=== PATIENT | female | born 1955 | race Caucasian/White ===

== ENCOUNTER 2017-02-25 10:45 | Day surgery (SDC) | payer OTHER ==
[2017-02-25] VITALS (9 sets, daily range): BP systolic 96–131; BP diastolic 59–97; PULSE 58–75; RESP 16–23; O2SAT 99–100
[~2017-02-25] VITALS: Ht 167.6 cm; Wt 57.1 kg
--- NOTE | 2017-02-25 07:10 | PCM.HPANE ---
Patient Data Surgeon Admitting Provider: Attending Provider:Deven Arzate MD Primary Care Physician:Kavya Young Other Provider:Frederick Luevano Anesthesia Reason for Visit Left Inguinal Region Mass Ht/WT & BMI Height (Feet): 5 Height (Inches): 6 Weight (Kilograms): 57.61 Body Mass Index 20.00 Allergies Coded Allergies: latex (Verified Allergy, Unknown, rash, 02/25/17) Past Anesthesia History Anesthesia History: Denies:: Anesthesia Reactions Diabetes History Hx Diabetes?: No Medications Hypertension Medication: No Home Meds Incl Beta Sundeep: No Reported Medications Calcium Carbonate (Tums Ultra Strength)1,177 Mg Tab.chew1,177 Mg PO 02/25/17 Cholecalciferol (Vitamin D3) (Vitamin D)1,000 Unit Capsule1,000 Unit PO DAILY # 1 BOTTLE Ref 0 02/25/17 Multivitamin (Once Daily)1 Each Tablet1 Each PO DAILY 02/25/17 Estradiol (Vagifem)10 Mcg Lyctzp36 Mcg VG Q3D 02/25/17 History History of ENT Problems?: No Hx of Heart Problems?: No Hx of Respiratory Problem?: No Respiratory History: Denies:: Oxygen Administration Use of C-PAP Machine Hx Neurologic Problems?: No Hx of GI Problems?: Yes Other GI Pertinent History: left femoral hernia current admission problem Hx of Problems?: Yes Female Hx: Denies:: Currently (tubal) Problems with Breasts? Skin History: Denies:: History Skin Disorders? Pressure Ulcers Hx Musculoskeletal Problems?: No Hx of Psycho/Social Problems?: No Hx Surgeries?: Yes (tubal, bladder sling) Hx Any Other Health Problems?: Yes Other History: Denies:: Cancer Thyroid Disease Hx Diabetes: No Hx Alcohol Use: YesAlcoholic Drinks Per Day: one drink dailyHx Substance Use: NoHave You Smoked inLast 12 mo: No Stop/Bang P-Blood Pressure: treated: No B- Body Mass Index > 35 kg/m2: No A- Age over 50: Yes N- Neck Large Circumference: No G- Gender Male: No HANNAH Risk Assessment: Low Risk, <3 Yes Risk Assessment Category Category 1A: Patient has history of documented sleep apnea, and HAS NOT received any narcotic, sedative or anesthesia administration during this stay. Category 1B: Patient has history of documented sleep apnea, and HAS received any narcotic , sedative or anesthesia administration during this stay Category 2: Patient has SUSPECTED Obstructive Sleep Apnea, and HAS received any narcotic , sedative or anesthesia administration during this stay. Category 3: Patient has SUSPECTED Obstructive Sleep Apnea and HAS NOT received narcotic, sedative or anesthesia administration during this stay. Category 4: Outpatient in Procedural Areas with known sleep apnea or who screen positive for High Risk via the STOP/BANG questionnaire. Exam Exam General Appearance: Alert, Oriented X3, Cooperative, No Acute Distress HEENT/AIRWAY: MP 2 Lungs: Clear to Auscultation, Normal Air Movement Heart: Exam Unremarkable, Regular Rate/Rhythm, No Murmurs/Rubs/Gallops Plan Impression Patient chart reviewed, patient interviewed and anesthestic plan with risks, benefits, and alternatives discussed, and informed consent obtained. ASA Physical Status: ASA1 Normal Healthy Anesthetic Plan: GA, MAC Bene/Risks/Altern/Consents: Yes HP Complete Prior to Induction: Yes Tristin Queen MD Feb 25, 2017 07:10
[~2017-02-25 10:45] MED LIST: CeFAZolin 2 Gm/50 mL D5W IV Premix IV ONE
[2017-02-25] MEDS ORDERED: Remifentanil 1 mg/3 mL Inj ONE (10:46)
[2017-02-25] MEDS ORDERED: Propofol 10,000 mCg/mL 20 mL Inj ONE (10:46)
[2017-02-25] MEDS ORDERED: CeFAZolin Inj 2 gm / 50mL D5W IV ONE (11:36)
[2017-02-25] MEDS: Lactated Ringer's 1,000 ML IV SCH ×2 (11:51→14:02)
[2017-02-25] MEDS ORDERED: CALC117719 PO (11:54)
[2017-02-25] MEDS ORDERED: ESTR10TA VG (11:54)
[2017-02-25] MEDS ORDERED: MULT-666 PO (11:54)
[2017-02-25] MEDS ORDERED: CHOL100045 PO (11:54)
[2017-02-25] MEDS ORDERED: Bupivacaine-MPF 0.5% 30 mL Inj INFILTRATE ONE (14:01)
[2017-02-25] MEDS ORDERED: Lidocaine PF 1% 30 mL Inj INFILTRATE ONE (14:08)
[2017-02-25] MEDS ORDERED: Lactated Ringer's 1,000 ML IV SCH (14:16)
[2017-02-25] MEDS ORDERED: Lactated Ringer's 500 ML IV PRN (14:16)
[2017-02-25] MEDS ORDERED: fentaNYL-PF 50 mCg/mL 2 mL Inj IVPUSH PRN (14:20)
[2017-02-25] MEDS ORDERED: HYDROmorphone 1 mg/mL Inj IVPUSH PRN (14:20)
[2017-02-25] MEDS ORDERED: Dexamethasone 4 mg/mL Inj IVPUSH PRN (14:20)
[2017-02-25] MEDS ORDERED: MetoCLOpramide 5 mg/mL 2 mL Inj IVPUSH PRN (14:20)
[2017-02-25] MEDS ORDERED: Ondansetron 2 mg/mL 2 mL Inj IVPUSH PRN (14:20)
[2017-02-25] MEDS ORDERED: Phenylephrine 10,000 mCg/mL Inj IVPUSH PRN (14:20)
[2017-02-25] MEDS ORDERED: EPHEDrine Sulfate 50 mg/mL Inj IVPUSH PRN (14:20)
[2017-02-25] MEDS ORDERED: HYDROcodone-APAP 5-325 mg Tablet PO PRN (14:50)
--- NOTE | 2017-02-25 23:53 | OP ---
[address] [address] OPERATIVE REPORT PATIENT: CRISTIANE LAMBERT : 1955 MR#: [id number] ADMIT: 02/25/2017 JOB ID: [id number] DATE OF SURGERY: 02/25/2017 PREOPERATIVE DIAGNOSIS(ES): Left groin mass. POSTOPERATIVE DIAGNOSIS(ES): Left femoral lymphadenopathy. OPERATION: Left femoral lymph node biopsy. SURGEON: Deven Arzate MD. INSTRUCTOR PSYCHIATRIC AIDE: Dario Murguia PA-C. INDICATIONS: The patient is a 61-year-old female who has a left groin mass. She 1st noticed it in October. She believes it has increased in size and causes intermittent discomfort. She had a left anterior knee injury in July that took several months to heal. On physical examination, she had a palpable mass high in her left groin just in the exact location where an incarcerated femoral hernia would be. After discussing options with the patient, it was elected to proceed with exploration and repair of incarcerated femoral hernia or excision of a lymph node, whatever was found. She agreed to proceed. FINDINGS: The mass was an enlarged lymph node. It was firm. Portions of it were sent for flow cytometry and the rest for conventional pathology. There was no evidence of a femoral hernia. DESCRIPTION OF PROCEDURE: At the beginning and end of the operation, the SCOAP checklist was completed. She received deep sedation administered by Dr. Tristin Queen. Using ChloraPrep, her left groin was prepped and draped in the usual fashion. An incision was made over the mass, and she received 1% lidocaine. The incision followed skin lines and was located above the inguinal crease and ran obliquely. Using cautery dissection, it was carried down to the mass and once it was then apparent that it was a lymph node, I used a LigaSure device to divide the tissues and lymphatic channels attached to and going into the node. After removing it, it was submitted to Pathology as discussed above. Hemostasis was ensured with cautery. The wound was closed with layers of running subcutaneous 3-0 Vicryl, interrupted deep dermal 3-0 Vicryl and running subcuticular 4-0 Vicryl and Dermabond. The estimated blood loss was less than 5 cc. There were no apparent complications. The final sponge, needle and instrument counts were announced as correct, and she was returned to recovery room in stable condition. Critical assistance was provided by Dario Murguia PA-C.
--- NOTE | 2017-02-26 18:55 | PCM.ANEP1 ---
Post Anesthesia Phase 1 PACU Phase 1 Assessment Anesthetic Administered: GA Level of Alertness: Awake, talking MADRIGAL's with Equal Strength: Yes Pain: No Nausea or Vomiting: No Oxygen Delivery: Nasal Cannula Lungs: Clear to Auscultation Dermatome Level: Full Sensation Tristin Queen MD Feb 26, 2017 18:55
--- NOTE | 2017-02-26 18:56 | PCM.ANEP2 ---
Post Anesthesia Evaluation ASA/CMS Post Anesthesia VS in Patient's Normal Range?: Yes Resp Stable; Airway Patent?: Yes CV Function & Hydration Stable: Yes Mental Status Recovered?: Yes Pain control Satisfactory?: Yes N/V Control Satisfactory?: Yes Tristin Queen MD Feb 26, 2017 18:56
--- NOTE | 2017-02-27 15:41 | PATH ---
SURGICAL PATHOLOGY Attending Physician:Linda Dash CASE STATUS: Signed Out PATIENT NAME: CRISTIANE LAMBERT PID: [id number] : 1955 DATE COLLECTED:02/25/2017 00:00 SPECIMEN: Lymph Node, Biopsy CLINICAL HISTORY: 1). LEFT FEMORAL LYMPH NODE FINAL DIAGNOSIS: 1.LEFT FEMORAL LYMPH NODE: METASTATIC SQUAMOUS CELL CARCINOMA, MODERATELY TO POORLY DIFFERENTIATED. ICD10 code C77.4 NOTE: As part of a routine quality assurance supervisor final, Dr. Lino Alaniz has also reviewed this case and agrees with the diagnosis. The finding of metastatic squamous cell carcinoma was reported to Torrie in Dr. Arzate' s office on 02/27/[address] Whitmore. GROSS DESCRIPTION: The specimen is received in formalin, labeled with the patient's name, sublabeled as left femoral lymph node and consists of a lymph node (2.5 x 1.7 x 1.6 cm). Section code: (A-D) one lymph node, saline sections. Specimen entirely submitted. 02/26/17 JM MICRO DESCRIPTION: Sections are of lymph node that is almost entirely replaced by a malignant neoplasm characterized by large nests of basaloid cells with central keratin formation in some. There is moderate to marked nuclear pleomorphism, and mitotic rate is brisk. ICD-9 CODES: CPT CODES: 1: 74416, 96789 PROCEDURE/ADDENDA: Addendum SPI Addendum Diagnosis Flow Interpretation: Left femoral lymph node biopsy: No abnormal lymphocyte population; see Comment. Flow Comment: Flow cytometry performed on cells obtained from the left femoral lymph node biopsy shows 56% lymphocytes and 44% granulocytes. Lymphocytes consist of 78% mature T cells with a CD4/CD8 ratio of 6.2 and 18% B cells. No monoclonal B cells are identified. No aberrant antigen expression is identified on T or B cells. In summary, the flow cytometric analysis does not demonstrate an abnormal lymphocyte population. Morphologic review of the cytospin preparation from the fresh tissue used for flow cytometry shows malignant cells of large size. Further characterization of this large cell malignancy will require correlation with the lymph node biopsy histology and immunohistochemistry, if indicated. Resulting Pathologist: Mark Vásquez MD, PhD - [facility]. Addendum Comment Please see [facility] Flow Cytometry Report [id number] for complete details. Electronically Signed Out Trish Whitmore MD Addendum SPI Addendum Diagnosis Sections, along with appropriate control are incubated with antibodies to P16. The tumor cells are strongly positive. Addendum Comment {Not Entered} Electronically Signed Out Lino Alaniz MD Electronically Signed Out Trish Whitmore MD [facility] [address], [place] [address] Technical component performed at [facility], [address], [place], [address]
[2017-03-07] MEDS ORDERED: LORA0.5T PO (16:47)
[2017-04-23] MEDS ORDERED: ONDA-54 PO (09:41)
[2017-04-23] MEDS ORDERED: PROC-4 PO (09:41)
== END 2017-02-25 23:59 | disposition home or self-care (01) ==
LOC: SAS 10:45
PROVIDERS: ATTEND Surgery
DX: C77.4 Secondary and unspecified malignant neoplasm of inguinal and lower limb lymph nodes (principal); Z87.891 Personal history of nicotine dependence

== ENCOUNTER 2017-03-03 08:50 | Day surgery (SDC) | payer OTHER ==
[2017-03-03] VITALS (8 sets, daily range): BP systolic 103–132; BP diastolic 6–79; PULSE 60–70; RESP 14–17; O2SAT 100
[~2017-03-03] VITALS: Ht 167.6 cm; Wt 56.9 kg
--- NOTE | 2017-03-03 08:16 | HP ---
[address] [address] HISTORY AND PHYSICAL PATIENT: CRISTIANE LAMBERT : 1955 MR#: [id number] ADMIT: 03/03/2017 JOB ID: [id number] HISTORY: The patient is a 61-year-old female, who on February 25, 2017, had a left inguinal exploration. It was for a left inguinal mass with the differential being an incarcerated femoral hernia versus a lymph node. It turned out to be a lymph node, and the final pathology report showed metastatic squamous cell carcinoma. She has no known primary. After discussing options with the patient, it was elected to proceed with an evaluation under anesthesia with the patient in lithotomy including a vaginal examination as well as anoscopy. PAST MEDICAL HISTORY: She has no major medical illnesses. She is a lifelong nonsmoker. She has no medications. PHYSICAL EXAMINATION: Alert. No distress. BMI is 21. HEENT: No scleral icterus. Neck: No masses. Lungs: Clear. Cardiac exam: Regular rhythm. No murmurs or gallops appreciated. Oblique left femoral incision. IMPRESSION: Metastatic squamous cell carcinoma, etiology unknown. PLAN: Will proceed with an evaluation under anesthesia with anoscopy, pelvic exam and biopsy of any suspicious lesions. The patient has made a decision to operate.
[~2017-03-03 08:50] MED LIST changes: +CALC117719 PO; +CHOL100045 PO; -CeFAZolin 2 Gm/50 mL D5W IV Premix IV ONE; +ESTR10TA VG; +MULT-666 PO
[2017-03-03] MEDS ORDERED: Propofol 10,000 mCg/mL 20 mL Inj ONE (08:51)
[2017-03-03] MEDS ORDERED: fentaNYL-PF 50 mCg/mL 2 mL Inj ONE (08:51)
[2017-03-03] MEDS ORDERED: Ondansetron 2 mg/mL 2 mL Inj ONE (08:51)
[2017-03-03] MEDS ORDERED: Lactated Ringer's 1,000 ML IV ONE (09:07)
--- NOTE | 2017-03-03 10:10 | PCM.HPANE ---
Patient Data Surgeon Admitting Provider: Attending Provider:Deven Arzate MD Primary Care Physician:Kavya Yuong Other Provider:Frederick Luevano Anesthesia Reason for Visit Evaluation Under Anesthesia Ht/WT & BMI Height (Feet): 5 Height (Inches): 6 Weight (Kilograms): 56.9 Body Mass Index 20.00 Allergies Coded Allergies: latex (Verified Allergy, Unknown, rash, 02/25/17) Past Anesthesia History Anesthesia History: Denies:: Anesthesia Reactions Diabetes History Hx Diabetes?: No Medications Home Meds Incl Beta Sundeep: No Reported Medications Calcium Carbonate (Tums Ultra Strength)1,177 Mg Tab.chew1,177 Mg PO 02/25/17 Cholecalciferol (Vitamin D3) (Vitamin D)1,000 Unit Capsule1,000 Unit PO DAILY # 1 BOTTLE Ref 0 02/25/17 Multivitamin (Once Daily)1 Each Tablet1 Each PO DAILY 02/25/17 Estradiol (Vagifem)10 Mcg Egpnak39 Mcg VG Q3D 02/25/17 History History of ENT Problems?: No Hx of Heart Problems?: No Hx of Respiratory Problem?: No Respiratory History: Denies:: Oxygen Administration Use of C-PAP Machine Hx Neurologic Problems?: No Hx of GI Problems?: Yes Hx of Problems?: Yes Female Hx: Denies:: Currently (POST MENOPAUSAL) Problems with Breasts? Skin History: Denies:: History Skin Disorders? Pressure Ulcers Hx Musculoskeletal Problems?: No Hx of Psycho/Social Problems?: No Hx Surgeries?: Yes (tubal, bladder sling) Hx Any Other Health Problems?: Yes Other History: Denies:: Cancer Thyroid Disease Hx Diabetes: No Hx Alcohol Use: YesHx Substance Use: NoHave You Smoked inLast 12 mo: No Stop/Bang Risk Assessment Category Category 1A: Patient has history of documented sleep apnea, and HAS NOT received any narcotic, sedative or anesthesia administration during this stay. Category 1B: Patient has history of documented sleep apnea, and HAS received any narcotic , sedative or anesthesia administration during this stay Category 2: Patient has SUSPECTED Obstructive Sleep Apnea, and HAS received any narcotic , sedative or anesthesia administration during this stay. Category 3: Patient has SUSPECTED Obstructive Sleep Apnea and HAS NOT received narcotic, sedative or anesthesia administration during this stay. Category 4: Outpatient in Procedural Areas with known sleep apnea or who screen positive for High Risk via the STOP/BANG questionnaire. Exam Exam Vital Signs Vital Signs Date Time Temp Pulse Resp B/P Pulse Ox O2 Delivery O2 Flow Rate FiO2 03/03/17 09:08 36.3 70 14 132/79 100 Room Air General Appearance: Alert HEENT/AIRWAY: MP 1 Lungs: Clear to Auscultation Heart: Exam Unremarkable Meds/Labs/Diagnostics Admission Meds Current Medications Lactated Ringer's (Lr) 1,000 ml @ ud STK-MED ONCE IV Last administered on 03/03t 09:07; Start 03/03/17 at 09:07; Stop 03/03/17 at 09:08; Status DC Plan Impression Patient chart reviewed, patient interviewed and anesthestic plan with risks, benefits, and alternatives discussed, and informed consent obtained. NPO Status: 03/02@2230, APPLE JUICE @0530 ASA Physical Status: ASA2 Mod Systemic Disease Anesthetic Support Modalities: Hemodynamic Monitoring Anesthetic Plan: GA Bene/Risks/Altern/Consents: Yes HP Complete Prior to Induction: Yes Rigo Quiros MD Mar 03, 2017 10:10
[2017-03-03] MEDS ORDERED: Lactated Ringer's 500 ML IV PRN (11:14)
[2017-03-03] MEDS ORDERED: Lactated Ringer's 1,000 ML IV SCH (11:14)
[2017-03-03] MEDS ORDERED: EPHEDrine Sulfate 50 mg/mL Inj IVPUSH PRN (11:15)
[2017-03-03] MEDS ORDERED: HYDROmorphone 1 mg/mL Inj IVPUSH PRN (11:15)
[2017-03-03] MEDS ORDERED: Dexamethasone 4 mg/mL Inj IVPUSH PRN (11:15)
[2017-03-03] MEDS ORDERED: Ondansetron 2 mg/mL 2 mL Inj IVPUSH PRN (11:15)
[2017-03-03] MEDS ORDERED: MetoCLOpramide 5 mg/mL 2 mL Inj IVPUSH PRN (11:15)
[2017-03-03] MEDS ORDERED: fentaNYL-PF 50 mCg/mL 2 mL Inj IVPUSH PRN (11:15)
[2017-03-03] MEDS ORDERED: Phenylephrine 10,000 mCg/mL Inj IVPUSH PRN (11:15)
--- NOTE | 2017-03-03 11:36 | PCM.ANEP1 ---
Post Anesthesia Phase 1 PACU Phase 1 Assessment Date of Service: Mar 03, 2017 Vital Signs Vital Signs Date Time Temp Pulse Resp B/P Pulse Ox O2 Delivery O2 Flow Rate FiO2 03/03/17 09:08 36.3 70 14 132/79 100 Room Air Anesthetic Administered: GA Level of Alertness: Awake, talking MADRIGAL's with Equal Strength: Yes Pain: No Nausea or Vomiting: No Oxygen Delivery: Simple Mask Lungs: Clear to Auscultation Dermatome Level: Full Sensation Early,Rigo Evans MD Mar 03, 2017 11:35
--- NOTE | 2017-03-03 11:37 | PCM.ANEP2 ---
Post Anesthesia Evaluation ASA/CMS Post Anesthesia Date of Service: Mar 03, 2017 VS in Patient's Normal Range?: Yes Resp Stable; Airway Patent?: Yes CV Function & Hydration Stable: Yes Mental Status Recovered?: Yes Pain control Satisfactory?: Yes N/V Control Satisfactory?: Yes Early,Rigo Evans MD Mar 03, 2017 11:37
[2017-03-03] MEDS ORDERED: HYDROcodone-APAP 5-325 mg Tablet PO PRN (12:05)
--- NOTE | 2017-03-04 00:11 | OP ---
[address] [address] OPERATIVE REPORT PATIENT: CRISTIANE LAMBERT : 1955 MR#: [id number] ADMIT: 03/03/2017 JOB ID: [id number] DATE OF SURGERY: 03/03/2017 PREOPERATIVE DIAGNOSIS(ES): Metastatic squamous cell carcinoma left femoral lymph node. POSTOPERATIVE DIAGNOSIS(ES): Metastatic squamous cell carcinoma left femoral lymph node. PROCEDURE: 1. Evaluation under anesthesia. 2. Pelvic exam with Pap smear and cervical biopsy. 3. Anoscopy with anal biopsy. SURGEON: Deven Arzate MD. MUSIC THEORY PROFESSOR: None. INDICATIONS: A 61-year-old female who last week underwent a biopsy of a left femoral node which demonstrated squamous cell carcinoma. After discussing options with the patient, it was elected to proceed with an evaluation under anesthesia, Pap smear, pelvic exam and anoscopy. FINDINGS: Her vaginal vault appeared normal to me. The mucosal lining was smooth. There were no obvious lesions. There are no perivaginal legion lesions. The cervix appeared normal. It was a little thickened in direct anterior midline and I biopsied that area, in addition to doing a Pap smear. Perianal skin was normal. There is no cutaneous lesions. Anoscopy was normal, but when I inserted the scope there was some tearing of the posterior midline and so there is some mucosa that I removed, but grossly it was normal. In summary, I did not find any obvious primary source for her metastatic squamous cell carcinoma by this exam. Loupe magnification was used. DESCRIPTION OF PROCEDURE: At the beginning and end of the operation, the SCOAP checklist was completed. An LMA anesthetic was induced. She was placed in lithotomy position. I did a pelvic exam first. The bivalve speculum was inserted. I carefully inspected the vaginal mucosa and the cervix with the results as stated above. I did a Pap test with both the spatula and then with a brush and put them in the prep solution. There was some thickening of the cervix anteriorly and so I did a small biopsy of that, which was submitted to Pathology. Again with loupe magnification I carefully inspected the perivaginal and perianal skin. I saw no lesions to biopsy. Anoscopy was performed as stated above and grossly looked normal, but there was some scope trauma and so posteriorly I removed some of that, elevated the anoderm and submitted that to pathology, but grossly it was normal. The patient tolerated the procedure well. There were no obvious complications. There is essentially no bleeding. The final sponge, needle and instrument counts were announced as correct, and she was returned to recovery room in stable condition.
--- NOTE | 2017-03-06 14:40 | PATH ---
SURGICAL PATHOLOGY Attending Physician:Linda Dash CASE STATUS: Signed Out PATIENT NAME: JSESIE LAMBERT PID: [id number] : 1955 DATE COLLECTED:03/03/2017 20:45 SPECIMEN: 1: Cervix, Biopsy 2: Anus, Biopsy CLINICAL HISTORY: METASTATIC SQUAMOUS CELL CARCINOMA 1). CERVIX BIOPSY 2). POSTERIOR ANUS 3). forwarded to cytology. FINAL DIAGNOSIS: 1. Cervix, Biopsy: Squamous mucosa with mild cytologic atypia, suggestive of, but not diagnostic of low-grade squamous intraepithelial lesion (LSIL/cervical intraepithelial lesion I/SUZY-I/mild dysplasia). No high grade dysplasia or invasive tumor identified. 2. Posterior anus, Biopsy: Avulsed portions of high-grade squamous intraepithelial lesion (HSIL/anal intraepithelial lesion III/AIN-III/severe dysplasia) and avulsed portions of low-grade squamous intraepithelial lesion (LSIL/anal intraepithelial lesion I/AIN-I/mild dysplasia). No invasive tumor identified. ICD10 D01.3 GROSS DESCRIPTION: The specimen is received in two formalin filled containers labeled with the patient's name. 1). The specimen is sublabeled "cervix" and consists of a 0.3 x 0.2 x 0.2 CM portion of tissue which is entirely submitted in cassette 1A. 2). The specimen is sublabeled "posterior anus" and consists of 4 light chavira portions of tissue which aggregate to 0.3 x 0.3 x 0.2 CM. The specimen is entirely submitted in cassettes 2A. 03/05/2017 [facility] ICD-9 CODES: CPT CODES: 1: 82062 2: 54470 Electronically Signed Out Jessie Kaur MD [facility] Pathology [facility] [address], [place] [address] Technical component performed at [facility], [address] [place] [address] Ave[address], [place], [address]
[2017-03-07] MEDS ORDERED: LORA0.5T PO (16:47)
[2017-04-23] MEDS ORDERED: ONDA-54 PO (09:41)
[2017-04-23] MEDS ORDERED: PROC-4 PO (09:41)
== END 2017-03-03 23:59 | disposition home or self-care (01) ==
LOC: SAS 08:50
PROVIDERS: ATTEND Surgery
DX: D01.3 Carcinoma in situ of anus and anal canal (principal); N87.0 Mild cervical dysplasia; C77.4 Secondary and unspecified malignant neoplasm of inguinal and lower limb lymph nodes; N95.9 Unspecified menopausal and perimenopausal disorder
CPT/HCPCS: 46606; 57500; J2405; J3010; J7120

== ENCOUNTER 2017-03-18 11:45 | Day surgery (SDC) | payer OTHER ==
[2017-03-18] VITALS (8 sets, daily range): BP systolic 94–122; BP diastolic 48–78; PULSE 66–81; RESP 14–18; O2SAT 99–100
[~2017-03-18] VITALS: Ht 167.6 cm; Wt 55.7 kg
[~2017-03-18 11:45] MED LIST changes: -ESTR10TA VG; +LORA0.5T PO
[2017-03-18] MEDS ORDERED: Propofol 10,000 mCg/mL 20 mL Inj ONE (11:46)
[2017-03-18] MEDS ORDERED: fentaNYL-PF 50 mCg/mL 2 mL Inj ONE (11:46)
[2017-03-18] MEDS ORDERED: Ondansetron 2 mg/mL 2 mL Inj ONE (11:46)
[2017-03-18] MEDS: Lactated Ringer's 1,000 ML IV SCH ×2 (11:49→15:20)
[2017-03-18] MEDS ORDERED: IBUP200C PO (12:26)
--- NOTE | 2017-03-18 14:39 | PCM.HPANE ---
Patient Data Surgeon Admitting Provider: Attending Provider:Deven Arzate MD Primary Care Physician:Kavya Young Other Provider:Frederick Luevano Anesthesia Reason for Visit Metastatic Squamous Cell Cancer Ht/WT & BMI Height (Feet): 5 Height (Inches): 6.00 Weight (Kilograms): 55.740 Body Mass Index 19.00 Allergies Coded Allergies: latex (Verified Allergy, Unknown, rash, 02/25/17) Past Anesthesia History Anesthesia History: Denies:: Anesthesia Reactions (diarrhea for 1 week after last anes, sore throat ), Fam Anesthesia Reaction Diabetes History Hx Diabetes?: No Current Bedside Blood Glucose: 89 MRSA MRSA: No Medications Hypertension Medication: No Home Meds Incl Beta Sundeep: No Reported Medications Ibuprofen 200 Mg [id number] Mg PO QID PRN For Pain Ref 0 03/18/17 Lorazepam 0.5 Mg Tablet0.5 Mg PO TID PRN For Anxiety #5 TABLET Ref 0 for PET-CT 03/07/17 Calcium Carbonate (Tums Ultra Strength)1,177 Mg Tab.chew1,000 Mg PO DAILY 02/25/17 Cholecalciferol (Vitamin D3) (Vitamin D)1,000 Unit Capsule1,000 Unit PO DAILY # 1 BOTTLE Ref 0 02/25/17 Multivitamin (Once Daily)1 Each Tablet1 Each PO DAILY 02/25/17 Discontinued Reported Medications Estradiol (Vagifem)10 Mcg Awprzb75 Mcg VG Q3D 02/25/17 History History of ENT Problems?: No HEENT History: Denies:: Abnormal Airway Cataracts Difficult Intubation Dysphagia Glaucoma Hearing Problem Sinus Problem TMJ Denture Type: None Teeth Condition: Within Normal Limits Hx of Heart Problems?: No Cardiovascular History: Denies:: AICD Edema Heart Murmur Hypertension Irregular Heartbeat Pacemaker Hx of Respiratory Problem?: Yes Respiratory History: Positive for:: Cough (current) Denies:: Asthma COPD Emphysema Oxygen Administration Pneumonia Pulmonary Embolism Tuberculosis Use of C-PAP Machine Use of Inhalers / NEBS Other Resp Pertinent History: lung nodule noted on CT scan Hx Neurologic Problems?: No Neurological History: Denies:: Alzheimer's Disease CVA Multiple Sclerosis Parkinson's Disease Seizures Hx of GI Problems?: Yes Other GI Pertinent History: metastatic squamous cell ca- suspicious of anal primary current admission problem Hx of Problems?: Yes Female Hx: Denies:: Currently (POST MENOPAUSAL) Problems with Breasts? Skin History: Denies:: History Skin Disorders? Pressure Ulcers Hx Musculoskeletal Problems?: No Musculoskeletal History: Denies:: Degenerative Joint Fibromyalgia Musculoskeletal Trauma Osteoarthritis Hx of Psycho/Social Problems?: No Hx Surgeries?: Yes (cyst removed from left hand,endometriosis, tubal ligation) Hx Any Other Health Problems?: Yes Other History: Positive for:: Cancer (metastatic squamous cell unknown primary ) Denies:: Thyroid Disease History Blood Transfusions: Positive for:: Accept Blood Products? Denies:: Blood Transfusions Hx Diabetes: NoBedside Blood Glucose: 89 Hx Alcohol Use: Yes (1-2 drinks a week)Hx Substance Use: No Smoking Status: Former Smoker Have You Smoked inLast 12 mo: No (remote hx of in college ) Stop/Bang Treated for Sleep Apnea?: No Do You Have a CPAP Machine?: No S-Snoring: Do You Snore Loudly: No T-Tired: feel tired, fatigued: No O-Obsered: Observed not breath: No P-Blood Pressure: treated: No B- Body Mass Index > 35 kg/m2: No A- Age over 50: Yes N- Neck Large Circumference: No G- Gender Male: No HANNAH Total Score: 1 Risk Assessment Category Category 1A: Patient has history of documented sleep apnea, and HAS NOT received any narcotic, sedative or anesthesia administration during this stay. Category 1B: Patient has history of documented sleep apnea, and HAS received any narcotic , sedative or anesthesia administration during this stay Category 2: Patient has SUSPECTED Obstructive Sleep Apnea, and HAS received any narcotic , sedative or anesthesia administration during this stay. Category 3: Patient has SUSPECTED Obstructive Sleep Apnea and HAS NOT received narcotic, sedative or anesthesia administration during this stay. Category 4: Outpatient in Procedural Areas with known sleep apnea or who screen positive for High Risk via the STOP/BANG questionnaire. Exam Exam Vital Signs Vital Signs Date Time Temp Pulse Resp B/P Pulse Ox O2 Delivery O2 Flow Rate FiO2 03/18/17 12:13 36.7 67 18 121/78 99 Room Air General Appearance: Alert, Oriented X3, Cooperative HEENT/AIRWAY: MP 2 Lungs: Clear to Auscultation, Normal Air Movement Heart: Exam Unremarkable, Regular Rate/Rhythm Meds/Labs/Diagnostics Admission Meds Current Medications Lactated Ringer's (Lr) 1,000 ml @ 120 mls/hr Q8H20M IV Last administered on t 11:49; Start 03/18/17 at 05:00; Stop 03/18/17 at 13:19; Status DC Bedside Blood Glucose: 89 Plan Impression Patient chart reviewed, patient interviewed and anesthestic plan with risks, benefits, and alternatives discussed, and informed consent obtained. ASA Physical Status: ASA2 Mod Systemic Disease Anesthetic Plan: GA Bene/Risks/Altern/Consents: Yes HP Complete Prior to Induction: Yes Varghese Villegas MD March 18, 2017 14:39
[2017-03-18] MEDS ORDERED: Bupivacaine-MPF 0.25%/EPI 30 mL Inj INFILTRATE ONE (16:01)
[2017-03-18] MEDS ORDERED: Lactated Ringer's 1,000 ML IV ONE (16:02)
[2017-03-18] MEDS ORDERED: HYDROcodone-APAP 5-325 mg Tablet PO PRN (16:10)
[2017-03-18] MEDS ORDERED: Lactated Ringer's 500 ML IV PRN (16:16)
[2017-03-18] MEDS ORDERED: Lactated Ringer's 1,000 ML IV SCH (16:16)
[2017-03-18] MEDS ORDERED: Dexamethasone 4 mg/mL Inj IVPUSH PRN (16:20)
[2017-03-18] MEDS ORDERED: HYDROmorphone 1 mg/mL Inj IVPUSH PRN (16:20)
[2017-03-18] MEDS ORDERED: Phenylephrine 10,000 mCg/mL Inj IVPUSH PRN (16:20)
[2017-03-18] MEDS ORDERED: fentaNYL-PF 50 mCg/mL 2 mL Inj IVPUSH PRN (16:20)
[2017-03-18] MEDS ORDERED: Ondansetron 2 mg/mL 2 mL Inj IVPUSH PRN (16:20)
[2017-03-18] MEDS ORDERED: EPHEDrine Sulfate 50 mg/mL Inj IVPUSH PRN (16:20)
[2017-03-18] MEDS ORDERED: MetoCLOpramide 5 mg/mL 2 mL Inj IVPUSH PRN (16:20)
--- NOTE | 2017-03-18 16:53 | OP ---
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 PROCEDURE PERFORMED: 1. Exam under anesthesia. 2. Colposcopy. SURGEON: Dania Bhatt MD. ANESTHESIA: LMA. ESTIMATED BLOOD LOSS: Negligible. FINDINGS: Stenotic cervical os. Low-grade dysplastic changes. COMPLICATIONS: None apparent. INDICATIONS: This is a 61-year-old female, a patient of Dr. Deven Arzate who presented to his clinic for a femoral mass. She was brought to the operating room previously and enlarged lymph node was identified which was biopsied and returned with metastatic squamous cell carcinoma with HPV positivity. She also had an exam with Dr. Arzate with a random cervical biopsy and random anal biopsy. The cervical biopsy showed low-grade squamous intraepithelial lesion and the anal biopsy showed high-grade dysplasia. She was brought back to the operating room for a more thorough exam under anesthesia with anoscopy, and I was consulted for colposcopic portion of the procedure. PROCEDURE: Please see Dr. Arzate's dictation regarding the anoscopy portion of the case. When he had completed his portion, bivalve speculum was placed in the vagina. The cervix was visualized, and there was granulation tissue and postsurgical changes noted from his random biopsy that had previously been completed at 12 o'clock. After application of acetic acid, she had an area of aceto-white change at 11-12 o'clock. Following this, Lugol's solution was applied and the cervix was visualized with the colposcope. Her cervix was noted to be nonstaining Lugol's from 5-9 o'clock with some punctate mosaicism present. Random biopsies were taken at 12 o'clock at the area of previous biopsy by Dr. Arzate, 11:00, 7:00 and 6 o'clock. She was noted to have a stenotic cervical os and an endocervical curettage was then completed as well. Due to her stenotic cervix, I was not able to entirely visualize the transformation zone, but the overall impression was low-grade changes. On bimanual exam, she was noted to have some nodularity of her cervix at 5-6 o'clock. Her uterosacral ligaments were otherwise free of disease and there were no other abnormalities noted. Her uterus was small, mobile and nontender. At this point in time, the procedure was completed. ZOILA
--- NOTE | 2017-03-18 17:45 | OP ---
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 PROCEDURE: Anoscopy with random anal biopsies. SURGEON: Deven Arzate MD. SYSTEM INTEGRATION ENGINEER: Michelle Reese PA-C. INDICATIONS: The patient is a 61-year-old female who had presented with a left inguinal mass. The differential was incarcerated femoral hernia versus adenopathy. It turned out to be adenopathy demonstrating metastatic squamous cell carcinoma that was ultimately shown to be HPV positive. She was brought back to the operating room for an evaluation under anesthesia. On that 1st evaluation, she requested that I do everything despite my recommendation to have a gynecological evaluation in the operating room. She ended up having low-grade dysplasia from a cervical biopsy and high-grade dysplasia a from random anal biopsy. So, after discussing options with her again and after she was presented to Tumor Board, it was elected to return her to the operating room. This time, Dania Bhatt MD from Gynecology was also planning to evaluate her in the operating room. Please refer to Dr. Bhatt's dictation for her findings. FINDINGS: Again, I did not see an obvious anal cancer. Her anoderm was a little friable but grossly looked normal. I did quadrant biopsies anteriorly, both sides laterally and posteriorly. She also had no extra-anal abnormalities. DESCRIPTION OF PROCEDURE: In the operating room, Dr. Zen Villegas induced a general LMA anesthetic. She has placed in the lithotomy position with strings. Dr. Bhatt and I examined her concurrently, but without any obvious extravaginal vulvar or perianal lesions, I then inserted an anoscope and then did quadrant biopsies with results as stated above. Dr. Bhatt then did colposcopy and biopsies, endocervical curettage and please see her report for details. I then placed a Gel-Foam pack and an anal block with 30 cc of 0.25% bupivacaine with epinephrine. The blood loss was less than 10 cc. There were no apparent complications. The final sponge, needle and instrument counts were announced as correct and she was returned to recovery in stable condition. Critical assistance was provided by Michelle Reese PA-C.
--- NOTE | 2017-03-21 14:29 | PATH ---
SURGICAL PATHOLOGY Attending Physician:Linda Dash CASE STATUS: Signed Out PATIENT NAME: JESSIE LAMBERT PID: [id number] : 1955 DATE COLLECTED:03/18/2017 00:00 SPECIMEN: 1: Rectum, Biopsy 2: Rectum, Biopsy 3: Rectum, Biopsy 4: Rectum, Biopsy 5: Cervix, Biopsy 6: Cervix, Biopsy 7: Cervix, Biopsy 8: Cervix, Biopsy 9: Cervix, Biopsy CLINICAL HISTORY: 1). ANTERIOR RECTAL BIOPSY @ 12:00 2). RIGHT LATERAL 3). POSTERIOR 4). LEFT LATERAL 5). 12 O'CLOCK CERVICAL BIOPSY 6). 7 O'CLOCK CERVICAL BIOPSY 7). 11 O'CLOCK CERVICAL BIOPSY 8). 6 O'CLOCK CERVICAL BIOPSY 9). CERVICAL CURETTINGS FINAL DIAGNOSIS: A. Anterior rectal Biopsy At 12 o' clock: High-grade squamous intraepithelial lesion (HSIL/anal intraepithelial neoplasia III/AIN III/carcinoma in situ). No invasion identified. B. Right Lateral, Biopsy: High-grade squamous intraepithelial lesion (HSIL/anal intraepithelial neoplasia III/AIN III/carcinoma in situ). No invasion identified. C. Posterior, Biopsy: High-grade squamous intraepithelial lesion (HSIL/anal intraepithelial neoplasia III/AIN III/carcinoma in situ). No invasion identified. D. Left Lateral: High-grade squamous intraepithelial lesion (HSIL/anal intraepithelial neoplasia III/AIN III/carcinoma in situ). No invasion identified. E. Cervix At 12 o' clock, Biopsy: Low-grade squamous intraepithelial lesion (LSIL/ cervical intraepithelial neoplasia I/SUZY I/mild dysplasia. F. Cervix At 7 o' clock Biopsy: Low-grade squamous intraepithelial lesion (LSIL/ cervical intraepithelial neoplasia I/SUZY I/mild dysplasia. G. Cervix At 11 o' clock, Biopsy: Low-grade squamous intraepithelial lesion (LSIL/ cervical intraepithelial neoplasia I/SUZY I/mild dysplasia. H. Cervix At 6 o' clock, Biopsy: Low-grade squamous intraepithelial lesion (LSIL/ cervical intraepithelial neoplasia I/SUZY I/mild dysplasia. I. Cervical Curettings: Scant fragments of endocervical tissue; negative for glandular dysplasia and malignancy. ICD10: D01.3 NOTE: These slides were reviewed by my colleagues, Drs. Navas and Elva, who concur with the above interpretation. GROSS DESCRIPTION: 1. Received in formalin, labeled "anterior rectal biopsy", specimen consists of a light álvarez soft tissue fragment measuring 0.4 x 0.4 x 0.1 cm. Specimen is submitted entirely in one cassette. 2. Received in formalin, labeled "right lateral", specimen consists of a yellow-álvarez soft tissue fragment measuring 0.4 x 0.3 x 0.2 cm. The specimen is submitted entirely in one cassette. 3. Received in formalin, labeled "posterior", specimen consists of a pale álvarez soft tissue fragment measuring 0.3 x 0.2 x 0.1 cm. The entire specimen is submitted in one cassette. 4. Received in formalin, labeled "left lateral", specimen consists of a pale álvarez soft tissue fragment measuring 0.4 x 0.3 x 0.2 cm. Specimen is submitted entirely in one cassette. 5. Received in formalin, labeled "12 o'clock cervical", specimen consists of two chavira to white, rubbery tissue fragments together measuring 0.5 x 0.2 x 0.2 cm. Specimen is submitted entirely in one cassette. 6. Received in formalin, labeled "7 o'clock cervical", specimen consists of a pale álvarez soft tissue fragment measuring 0.4 x 0.2 x 0.1 cm. Specimen is submitted entirely in one cassette. 7. Received in formalin, labeled "11 o'clock cervical", specimen consists of two chavira to pale álvarez soft tissue fragments together measuring 0.4 x 0.3 x 0.1 cm. Specimen is submitted entirely in one cassette. 8. Received in formalin, labeled "6 o'clock cervical", specimen consists of a pale álvarez soft tissue fragment measuring 0.4 x 0.3 x 0.1 cm. Specimen is submitted entirely in one cassette. 9. Received in formalin, labeled "cervical curettings", specimen consists of multiple pale álvarez gelatinous material together measuring 0.9 x 0.9 x 0.1 cm. Specimen submitted entirely in one cassette. Note: Specimen might not survive processing. ([id number]) ICD-9 CODES: CPT CODES: 1: 40139 2: 78741 3: 20804 4: 50141 5: 76152 6: 63250 7: 84318 8: 63190 9: 68218 Electronically Signed Out Jessie Kaur MD [facility] [address], [place] [address] Technical component performed at [facility], [address], [place], [address]
[2017-04-23] MEDS ORDERED: ONDA-54 PO (09:41)
[2017-04-23] MEDS ORDERED: PROC-4 PO (09:41)
== END 2017-03-18 23:59 | disposition home or self-care (01) ==
LOC: SAS 11:45
PROVIDERS: ATTEND Surgery
DX: R85.613 High grade squamous intraepithelial lesion on cytologic smear of anus (HGSIL) (principal); N87.0 Mild cervical dysplasia; C77.4 Secondary and unspecified malignant neoplasm of inguinal and lower limb lymph nodes; A63.0 Anogenital (venereal) warts; R05 Cough; Z79.899 Other long term (current) drug therapy; Z87.891 Personal history of nicotine dependence